=== PATIENT | female | born 1985 | race Caucasian/White ===

== ENCOUNTER 2021-09-07 15:22 | Emergency (ER) | payer MEDICAID ==
[~2021-09-07] VITALS: Ht 167.6 cm; Wt 136.1 kg
[2021-09-07 15:34] VITALS: BP_SYST 235
[2021-09-07] MEDS ORDERED: MORPHINE 4 MG INJ. 4 MG/ML VIAL IVP ONE (15:45)
[2021-09-07] MEDS ORDERED: NACL 0.9% 1,000 ML IV ONE (15:45)
[2021-09-07] MEDS ORDERED: ONDANSETRON HCL 4 MG/2 ML VIAL IVP ONE (15:45)
--- NOTE | 2021-09-07 15:45 | NUR ---
radiology at bedside
--- NOTE | 2021-09-07 15:55 | NUR ---
Pt. bib sister post slipping while walking on wet grass twisting left ankle, ankle visibly looks displaced and has bruising, pt. rates pain 7/10, IV started by triage nurse, pt. currently on bedside commode for urine sample
--- NOTE | 2021-09-07 16:10 | NUR ---
pt. was unable to void Dr. Rebollar aware, pt. states does not think she is order to give morphine
--- NOTE | 2021-09-07 16:19 | NUR ---
Dr. Rebollar at bedside ankle positoned and splinted another xray ordered POC discussed with pt. and spouse
[2021-09-07 16:40] LABS: BASOPHILS % (AUTO) 0.2 % (0.0-2.0); EOSINOPHILS # (AUTO) 0.2 K/uL (0.0-0.4); EOSINOPHILS % (AUTO) 2.1 % (0.0-4.0); HEMATOCRIT 38.3 % (36-48); HEMOGLOBIN 12.7 g/dL (12.0-16.0); LYMPHOCYTES # (AUTO) 2.7 K/uL (1.0-5.5); LYMPHOCYTES % (AUTO) 21.9 % (20.5-51.5); MEAN CORPUSCULAR HEMOGLOBIN 28 pg (27-31); MEAN CORPUSCULAR HGB CONC 33 % (32-36); MEAN CORPUSCULAR VOLUME 83 fL (79.0-98.0); MONOCYTES # (AUTO) 0.6 K/uL (0.0-1.0); MONOCYTES % (AUTO) 4.6 % (1.7-9.3); NEUTROPHILS # (AUTO) 8.6 K/uL (1.8-7.7); NEUTROPHILS % (AUTO) 71.2 % (40.0-70.0); PLATELET COUNT (AUTO) 290 K/uL (130-430); RED BLOOD CELL COUNT(AUTO) 4.61 MIL/uL (4.2-6.2); WHITE BLOOD COUNT (AUTO) 12.1 K/uL (4.8-10.8)
[2021-09-07 17:03] LABS: CREATININE 0.78 mg/dL (0.55-1.30)
[2021-09-07 17:08] LABS: ALBUMIN 3.6 g/dL (3.4-4.8); TOTAL BILIRUBIN 0.2 mg/dL (0.0-1.0)
[2021-09-07] MEDS ORDERED: HYDR-3917 PO (17:50)
[2021-09-07] MEDS ORDERED: HYDROcodone/ACETAMIN 5-325 MG TAB (NORCO/ VICODIN) PO ONE (18:15)
--- NOTE | 2021-09-07 18:22 | NUR ---
pt. was return demostration with crutches on dicharge and lost balance put weight on left foot, increase in pain requested pain med. prior to discharge, medicated with norco
[2021-09-07 18:36] VITALS: BP_SYST 159
--- NOTE | 2021-09-07 18:37 | NUR ---
Patient given written and verbal discharge instructions and verbalizes understanding. Dr. Rebollar discussed with patient the results and treatment provided. Patient in stable condition. ID arm band removed. IV catheter removed intact and dressing applied, no active bleeding. Rx of [place] given. Patient educated on pain management and to follow up with PMD. Pain Scale 4. Opportunity for questions provided and answered. Medication side effect fact sheet provided.
== END 2021-09-07 18:37 | disposition home or self-care (01) ==
LOC: SED 15:22
DX: S82.842A Displaced bimalleolar fracture of left lower leg, initial encounter for closed fracture (principal); W18.39XA Other fall on same level, initial encounter; Y93.89 Activity, other specified; Y92.89 Other specified places as the place of occurrence of the external cause; Y99.8 Other external cause status
CPT/HCPCS: 27810; 36415; 73600; 73610; 80053; 84703; 85025; 96361; 96374; 96375; 99285; J2270; J2405; J7030